=== PATIENT | female | born 2000 | race Two or more races ===

== ENCOUNTER → 2025-05-01 09:10 | Outpatient (REF) | payer SELFPAY ==
[2025-05-01 10:32] LABS: Hematocrit 37.7 % (37.0-47.0); Hemoglobin 12.4 g/dL (12.0-16.0); Mean Corp Hgb Conc. 32.9 g/dL (33.0-37.0); Mean Corpuscular Volume 93.1 fL (81.0-99.0); Platelet Count 306 10^3/uL (130-400); Red Cell Dist. Width 12.6 % (11.5-14.5)
[2025-05-01 10:42] LABS: INR 1.07; PT 14.2 Sec (11.4-14.6)
[2025-05-01 10:43] LABS: APTT 27.2 Sec (23.4-35.0)
[2025-05-01 11:08] LABS: Blood Urea Nitrogen 10 mg/dl (7-17); Calcium 10.1 mg/dl (8.4-10.2); Carbon Dioxide 29 mmol/L (22-30); Chloride 105 mmol/L (98-107); Glucose 83 mg/dl (70-99); Potassium 4.2 mmol/L (3.5-5.1); Sodium 140 mmol/L (135-145); eGFR > 60.00
[2025-05-01 14:12] VITALS: BMI 17.8
== END ==
LOC: SDSPAT 09:10
PROVIDERS: ATTENDING PHYSICIAN Dentist Oral and Maxillofacial Surgery
DX: K01.1 Impacted teeth (principal)
CPT/HCPCS: 36415; 80048; 85027; 85610; 85730; 93005

== ENCOUNTER 2025-07-19 06:37 | Day surgery (SDC) | payer SELFPAY ==
[2025-07-19] VITALS (8 sets, daily range): BP systolic 107–128; BP diastolic 68–77; BMI 18.3
--- NOTE | 2025-07-19 13:41 | W.SUR.PREOP ---
Pre-Operative Surgical Note
-
I have examined this patient prior to the performance of the scheduled procedure.
The patient's condition is unchanged from the time of the current History and
Physical and the patient is able to undergo the scheduled procedure.
[2025-07-19] MEDS: NORMOSOL-R/PLASMALYTE-A 1000 IV (13:47)
[2025-07-19] MEDS: DILAUDID 0.25 MG IV (17:16)
--- NOTE | 2025-07-19 18:00 | W.IMMPOSTOP ---
Surgical Immed Post Op Note
-
Primary Surgeon: Dr. Yumi Santiago DMD, MD
Assisting Surgeon: None
Pre-op Diagnosis: Impacted teeth
Post-op Diagnosis: Impacted teeth
Procedure Performed: Extraction of teeth #1,16,32
Anesthesia Type: General anesthesia with an oral ETT
Specimen / Cultures: None
Estimated Blood Loss: 5cc
Complications: None
Operative Findings: Extraction of teeth #1,16,32 without issues
== END 2025-07-19 18:30 | disposition home or self-care (01) ==
LOC: SDS 06:37
PROVIDERS: ATTENDING PHYSICIAN Dentist Oral and Maxillofacial Surgery
DX: K01.1 Impacted teeth (principal)
CPT/HCPCS: D7210 ×3